=== PATIENT | female | born 1990 | race Two or more races ===

== ENCOUNTER 2019-12-12 19:25 | Emergency (ER) | payer SELFPAY ==
[~2019-12-12] VITALS: Ht 162.6 cm; Wt 99.8 kg
[~2019-12-12 19:25] MED LIST: CORTISPORIN EAR10 ML RIGHT EAR; IBUPROFEN600 MG ORAL
[2019-12-12 19:45] VITALS: BP 133/78
[2019-12-12] MEDS ORDERED: Fluorescein Strips RIGHT EYE ONE (19:45)
--- NOTE | 2019-12-12 20:04 | Emergency Room Report ---
History of Present Illness General Chief Complaint: Eye Problems Source: Patient Present Illness HPI 29-year-old female with no significant past medical history here complaining of right eye swelling and pressure x1 day. Patient denies any trauma to the eye, reports that she woke up with it and at first it was pruritic. Reports that it was in the left eye and now progressing to the right eye. Reports that she has a dog. Yellow discharge noted. Denies any changes in vision. Denies wearing contact lenses or glasses. Denies any head injury, loss of consciousness, URI symptoms, history of hypertension or diabetes. Denies photophobia. Denies . Allergies: Coded Allergies: No Known Allergies (Unverified , 10/15/15) COVID-19 Screening Contact w/high risk pt: No Experienced COVID-19 symptoms?: No COVID-19 Testing performed COMMISSARY MANAGER: No Patient History Past Medical History: see triage record Past Surgical History: none Pertinent Family History: none Now: No : 0 Para: 0 Immunizations: UTD Reviewed Nursing Documentation: PMH: Agreed; PSxH: Agreed Nursing Documentation-PMH Past Medical History: No Stated History Review of Systems All Other Systems: negative except mentioned in HPI Physical Exam Vital Signs Date Time Temp Pulse Resp B/P (MAP) Pulse Ox O2 Delivery O2 Flow Rate FiO2 12/12/19 19:25 98.2 86 18 133/78 (96) 99 Room Air Sp02 EP Interpretation: reviewed, normal General Appearance: no apparent distress, alert, GCS 15, non-toxic Head: normocephalic, atraumatic Eyes: right eye other - No corneal abrasion noted, conjunctive is injected, yellow discharge noted right eye, with lamp was used; bilateral eye PERRL ENT: hearing grossly normal, normal pharynx, no angioedema, normal voice Neck: full range of motion, supple/symm/no masses Respiratory: chest non-tender, lungs clear, normal breath sounds, speaking full sentences Cardiovascular #1: regular rate, rhythm, no edema Gastrointestinal: normal bowel sounds, non tender, soft, non-distended, no guarding, no rebound Musculoskeletal: back normal Neurologic: alert, motor strength/tone normal, oriented x3, sensory intact, responsive, speech normal Psychiatric: judgement/insight normal, memory normal, mood/affect normal, no suicidal/homicidal ideation Skin: no rash Lymphatic: no adenopathy Medical Decision Making PA Attestation All my diagnosis and treatment plans were reviewed ad discussed with my supervising physician Dr. Shepherd Diagnostic Impression: Primary Impression: Bacterial conjunctivitis ER Course 29-year-old female with no significant past medical history here complaining of right eye swelling and pressure x1 day. Patient denies any trauma to the eye, reports that she woke up with it and at first it was pruritic. Reports that it was in the left eye and now progressing to the right eye. Reports that she has a dog. Yellow discharge noted. Denies any changes in vision. Denies wearing contact lenses or glasses. Denies any head injury, loss of consciousness, URI symptoms, history of hypertension or diabetes. Denies photophobia. Denies . Ddx considered but are not limited to: bacterial conjunctivitis, allergic conjunctivitis, viral conjunctivitis, periorbital cellulitis, global trauma Vital signs: are WNL, pt. is afebrile H&PE are most consistent with: Bacterial conjunctivitis ORDERS: Ofloxacin ophthalmic, prednisone, Benadryl ED INTERVENTIONS: Tetracaine was used, fluorescein strip was used, with lamp was used DISCHARGE: At this time pt. is stable for d/c to home. Will provide printed patient care instructions, and any necessary prescriptions. Care plan and follow up instructions have been discussed with the patient prior to discharge. Patient take medication as directed, follow-up with recycling attendant, if worsening symptoms return to the emergency room. At this time no further evaluation, scanning needed patient did not have any trauma to the eye and it started with left eye now progressing to right eye appears to be infectious. Last Vital Signs Date Time Temp Pulse Resp B/P (MAP) Pulse Ox O2 Delivery O2 Flow Rate FiO2 12/12/19 19:25 98.2 86 18 133/78 (96) 99 Room Air Disposition: HOME, SELF-CARE Condition: Stable Scripts Diphenhydramine Hcl (BENADRYL ALLERGY) 25 Mg Tablet 25 MG PO BID, #20 TAB Prov: Evette Greenwood 12/12/19 Prednisone* (PREDNISONE*) 20 Mg Tablet 40 MG ORAL DAILY for 3 Days, #6 TAB Prov: Evette Greenwood 12/12/19 Ofloxacin (Ofloxacin) 5 Ml Drops 2 DROP OP Q6HR for 7 Days, #5 ML Prov: Evette Greenwood 12/12/19 Referrals: NOT CHOSEN IPA/MD,REFERRING (PCP) Patient Instructions: Bacterial Conjunctivitis, [id number] Additional Instructions: Take medication as directed, follow primary care provider, follow with ophthal mologist, if worsening symptoms return to the emergency room Evette Greenwood Dec 12, 2019 20:04
[2019-12-12] MEDS ORDERED: BENADRYL ALLERG25 M1 PO (20:05)
[2019-12-12] MEDS ORDERED: PREDNISONE20 MG ORAL (20:05)
[2019-12-12] MEDS ORDERED: OFLOXACIN10 ML OP (20:05)
[2019-12-12 20:25] VITALS: BP 133/78
== END 2019-12-12 20:10 | disposition home or self-care (01) ==
LOC: EMR 19:49
DX: H10.9 Unspecified conjunctivitis (principal)
CPT/HCPCS: 99283